=== PATIENT | female | born 1975 | race Caucasian/White ===

== ENCOUNTER → 2016-08-02 | Outpatient (CLI) | payer BC ==
[~2016-08-02] MED LIST: CLC100X PO; KFL500 PO; LVNIS40 SQ; OXYC5TAB PO; PRENTAB26 PO
--- NOTE | 2016-08-06 15:27 | MAMMOGRAPHY REPORT ---
THIS REPORT HAS BEEN AMENDED. BILATERAL DIGITAL SCREENING MAMMOGRAM TOMOSYNTHESIS WITH CAD: 08/02/2016 CLINICAL HISTORY: Routine screening. TECHNIQUE: Breast tomosynthesis in addition to standard 2D mammography was performed. Additional 2 -D CC views were performed with the nipples in profile. Current study was also evaluated with a Unicotriper Aided Detection (CAD) system. COMPARISON: No prior exams were available for comparison. BREAST COMPOSITION: There are scattered areas of fibroglandular density in both breasts. FINDINGS: There are scattered benign-appearing microcalcifications in the breasts. No suspicious ma ss, architectural distortion or cluster of suspicious microcalcifications is seen. IMPRESSION: ACR BI-RADS CATEGORY 1: NEGATIVE There is no mammographic evidence of malignancy. Prior outside mammograms are currently being reque sted and if obtained they will be reviewed, compared to the current exam to assess for any more subt le changes, and an addendum will be made to this report. Otherwise, a 1 year screening mammogram is recommended. The patient will receive written notification of the results. Approximately 10% of breast cancers are not detected with mammography. A negative mammographic repor t should not delay biopsy if a clinically suggestive mass is present. Radha Tesfaye M.D. ay/:08/05/2016 22:27:57 [employer] Supervisor: Renzo JAMES(Sarah)(M), [facility] letter sent: Normal 04/15 BI-RADS Code: ACR BI-RADS Category 1: Negative AMENDMENT: 08/14/2016 Radha Tesfaye M.D. A prior outside mammogram from [facility] dated 04/20/2013 became available for review. There has been no significant interval change compared to the prior outside exam. No new suspicious mass, ar chitectural distortion or suspicious microcalcifications are identified. Advise follow-up in 1 year for next annual screening mammogram. Amended BI-RADS: ACR BI-RADS Category 2: Benign letter sent: Normal /2
== END | disposition home or self-care (01) ==
LOC: C.MAMM 15:23
PROVIDERS: ATTEND Obstetrics & Gynecology
DX: Z12.31 Encounter for screening mammogram for malignant neoplasm of breast (principal)

== ENCOUNTER 2024-03-05 09:54 | Observation (INO) ==
--- NOTE | 2024-02-05 15:00 | PAT Medication Instructions ---
Medication Instructions Date of Service February 05, 2024 Home Medications flecainide 100 mg tablet 100 mg PO BID hydrochlorothiazide 25 mg tablet 25 mg PO QAM diltiazem HCl 240 mg capsule,extended release 24 hr 240 mg PO QAM bupropion HCl 300 mg 24 hr tablet, extended release 300 mg PO QAM celecoxib 200 mg capsule 200 mg PO BID escitalopram oxalate 10 mg tablet 10 mg PO HS omeprazole 20 mg tablet,delayed release 20 mg PO QAM sulfasalazine 500 mg tablet 1,000 mg PO BID tizanidine 4 mg tablet 4 mg PO HS PRN ASK your surgeon for instructions celecoxib 200 mg capsule 200 mg PO BID ASK your prescriber and surgeon sulfasalazine 500 mg tablet 1,000 mg PO BID DO NOT take the morning of surgery hydrochlorothiazide 25 mg tablet 25 mg PO QAM Take morning of surgery With a small sip of water, OTHERWISE NOTHING TO EAT OR DRINK AFTER MIDNIGHT: flecainide 100 mg tablet 100 mg PO BID diltiazem HCl 240 mg capsule,extended release 24 hr 240 mg PO QAM bupropion HCl 300 mg 24 hr tablet, extended release 300 mg PO QAM omeprazole 20 mg tablet,delayed release 20 mg PO QAM Take evening before surgery flecainide 100 mg tablet 100 mg PO BID escitalopram oxalate 10 mg tablet 10 mg PO HS tizanidine 4 mg tablet 4 mg PO HS PRN(if needed) Other Notes If you have any questions please call us at [phone] or [phone] or [phone] or [phone]
--- NOTE | 2024-02-10 11:10 | Anesthesiology Consultation ---
Date of Service February 10, 2024 Assessment & Plan (1) Encounter for pre-operative examination: Chart Review Chart Review: Acceptable Risk for Surgery and Patient seen in Pre Admission Testing - Check test AM DOS - Patient is NOT an ideal OPJ candidate (currently 23 hour observation) Chlorhexidine allergy- wipes not given Per PAT appt on 02/10/24, no recent illness/disease exposures, illness related symptoms, or recent illness/disease positive tests. Will leave to surgeon's discretion if preop Covid testing needed Per cardio letter 02/06/24= Patient has been evaluated and is considered cleared for proposed orthopedic procedure at low cardiac risk based on revised Angus Criteria. Teaching & Discussion Pre-Anesthesia Teaching/Discussion Notes: Instructed NPO after midnight before surgery,except medications with 15 cc of water. Medication instructions provided according to the PAT guidelines. History Surgery Operation Date: 03/05/24 11:00 Proposed Procedures p Left Total Knee Arthroplasty - Miki Harris, Height/Weight Height: 5 ft 8 in Weight: 155.9 kg Allergies Allergy/AdvReac Type Severity Reaction Status Date / Time Iodinated Contrast Media Allergy Severe Severe Verified 02/10/24 09:54 hives (w/crabs),pre-med Prednisone/Benadryl w/IV use grass pollen-perennial rye, Allergy Mild Eye Verified 02/10/24 09:54 standar swelling pollen extracts Allergy Mild Eye Verified 02/10/24 09:54 swelling Penicillins Allergy Unknown Severe Verified 02/10/24 09:54 rash (as child) shellfish derived Allergy Unknown Severe Verified 02/10/24 09:54 hives chlorhexidine AdvReac Mild Skin Verified 02/10/24 11:01 burning sensation and red welts duloxetine [From Cymbalta] AdvReac "Feels Verified 02/10/24 09:54 like I was lit on fire from the inside" Medications Home Medications Medication Instructions Recorded Confirmed Last Taken flecainide 100 mg tablet 100 mg PO BID 05/25/20 02/10/24 11/01/22 08:30 hydrochlorothiazide 25 mg tablet 25 mg PO QAM 05/25/20 02/10/24 10/31/22 08:30 diltiazem HCl 240 mg 240 mg PO QAM 09/26/22 02/10/24 11/01/22 08:30 capsule,extended release 24 hr bupropion HCl 300 mg 24 hr tablet, 300 mg PO QAM 02/04/24 02/10/24 Unknown extended release celecoxib 200 mg capsule 200 mg PO BID 02/04/24 02/10/24 Unknown escitalopram oxalate 10 mg tablet 10 mg PO HS 02/04/24 02/10/24 Unknown omeprazole 20 mg tablet,delayed 20 mg PO QAM 02/04/24 02/10/24 Unknown release sulfasalazine 500 mg tablet 1,000 mg PO BID 02/04/24 02/10/24 Unknown tizanidine 4 mg tablet 4 mg PO HS PRN muscle spasms 02/04/24 02/10/24 Unknown Past Medical History Medical History (Updated 02/10/24 @ 16:29 by Cyndie Britt PA-C) Depression GERD (gastroesophageal reflux disease) well controlled and stable History of COVID-19 01/2022 (home test)- cough > resolved Hx of deep venous thrombosis - DVT found in 2005 (9 months after knee surgery in 2004), Lovenox and Coumadin x months (no AC or issues x years) - had Lovenox post op with c-sections without issues - Negative hypercoagulable work up with heme per patient - Surgeon aware per patient- plans on Eliquis or Xarelto post op Hx of migraines 3-4/year Hypertension IUD (intrauterine device) in place Mirena placed 01/2023 Morbid obesity PCOS (polycystic ovarian syndrome) Sleep apnea CPAP Spondyloarthritis f/u rheumatology, [facility] on sulfasalazine SVT (supraventricular tachycardia) Follows with Dr. Espinoza, [facility] On Flecainide Exercise / Class Metabolic Activity III < 4 Walking/Shop/Light housework (one flight of stairs - no chest pain, mild SOB (feels deconditioning due to weight)) Past Family History Family History Grandmother (Paternal) Ovarian cancer, Onset Age: 51 Grandmother (Maternal) Breast cancer Father Colorectal cancer, Onset Age: 69 Uncle Liver cancer Past Surgical History Surgical History History of x2 History of cardiac cath 2009- no stents, "Normal" per cardiology office visit notes; f/u [facility] espino[facility] cardiology History of colposcopy History of dilatation and curettage w/ IUD insertion History of esophagogastroduodenoscopy (EGD) Hx laparoscopic cholecystectomy Hx of arthroscopy of knee x3 Hx of colonoscopy Hx of knee surgery Right knee osteotomy, 2005 Hx of microdiscectomy L5-S1 (2006) Hx of sinus surgery 06/15/23, w/turbinate reduction; f/u [facility] Nausea and vomiting after administration of anesthetic agent S/P tooth extraction Past Anesthesia History No Hx of Anesthesia Complications (with exception to PONV ) and No Family Hx of Anesthesia Complications History of PONV History of PONV and Hx of Motion Sickness Social History Smoking Status: Never smoker Do You Dip or Chew Tobacco: No Hx Alcohol Use: Yes Alcohol type: wine alcohol intake frequency: other Alcohol Intake Frequency Comment: maybe once or twice monthly Hx Substance Use: No substance use type: does not use Review of Systems Patient denies chest pain, shortness of breath at rest, cough, wheezing, palpitations. No hx of seizures, stroke, SC. No hx of blood transfusions Physical Exam Vital Signs VITALS BP 142/83 P 65 TEMP 98.2 SP02 96% RESP 16 Constitutional no acute distress ENMT Mouth: + small oral opening; no TMJ clicking Thyromental Distance: > or= 3.5 Finger Breadths (3.5) Mallampati Class: II Right front top tooth (dental work) [place] to molar Neck + short neck and + thick neck; neck extension not limited Respiratory normal respiratory effort; no respiratory distress Auscultation: lungs clear to auscultation bilaterally; no wheezes Cardiovascular Rate/Rhythm: regular rate and regular rhythm Heart Sounds: no murmur Vessels: no carotid bruit Musculoskeletal Spine: no pain with cervical ROM (mild stiffness ) Extremities: extremities normal to inspection Psychiatric Orientation: alert Lab Results Anesthesia Preop Results Results Anesthesia Widget: WBC 7.27 K/ul (4.8-10.8) 02/10/24 Hgb 12.6 g/dl (12.0-16.0) 02/10/24 Hct 38.8 % (37.0-47.0) 02/10/24 Plt 266 K/uL (130-400) 02/10/24 Na 138 mmol/L (136-145) 02/10/24 K 3.7 mmol/L (3.5-5.1) 02/10/24 Cl 102 mmol/L (98-107) 02/10/24 CO2 29 mmol/L (21-32) 02/10/24 BUN 19 mg/dl (6-23) 02/10/24 Creat 0.62 mg/dl (0.6-1.2) 02/10/24 Glucose Level 89 mg/dl (70-99(Fasting)) 02/10/24 PT 10.9 Seconds (9.0-12.0) 02/10/24 PTT 27 Seconds (21-31) 02/10/24 INR 1.0 (0.9-1.1) 02/10/24 Blood Type A Positive 02/10/24 Antibody Screen NEGATIVE 02/10/24 Testing Electrocardiogram Date: 02/10/24 Findings: + NSR @ (65bpm) Left axis deviation Nonspecific ST abnormality Chest X-Ray Date: 02/10/24 FINDINGS: Lung volumes are normal. Lungs are clear. There is no pneumothorax or pleural effusion. Cardiac size is at the upper limits of normal. Mediastinal contours are normal. There is no evidence for pulmonary edema. IMPRESSION: No acute cardiopulmonary findings. Echocardiogram Date: 12/10/23 EF: 60-65% LV Function: normal Other Findings: + LVH (borderline/concentric) and + diastolic dysfunction (Grade I ) Valvular Disease: + MR (mild) LV is normal Stress Test Date: 12/10/23 Type: nuclear EKG nondiagnostic. No significant ischemia. No significant infarction. Low risk study. SPECT perfusion images are considered to be within normal limits.
[~2024-03-05 09:54] MED LIST changes: +BUPIVACAINE 0.25% PF 30 ML VIAL ONE; +BUPIVACAINE 0.5 % 5 MG/1 ML PF 10ML VIAL ONE; -CLC100X PO; -KFL500 PO; -LVNIS40 SQ; -OXYC5TAB PO; -PRENTAB26 PO
[2024-03-05] MEDS: LR 500ML BOLUS, THEN 15ML/HR IV SCH ×2 (10:41→10:42)
[2024-03-05] MEDS: dexAMETHasone**PF** 10 MG/ML VIAL IV SCH (10:41)
[2024-03-05] MEDS: LR 60ML/HR IV SCH (10:42)
[2024-03-05] MEDS: GABAPENTIN 900 MG DOSE PO SCH (10:43)
[2024-03-05] MEDS: FAMOTIDINE 20 MG TAB PO SCH (10:43)
[2024-03-05] MEDS: ACETAMINOPHEN 500 MG TAB PO SCH ×2 (10:43→22:35)
[2024-03-05] MEDS ORDERED: MIDAZOLAM HCL 1 MG/ML 2ML VIAL ONE ×2 (11:31→12:49)
[2024-03-05] MEDS ORDERED: PROPOFOL IV EMULSION 10 MG/ML 20 ML VIAL IV ONE ×7 (11:31→13:53)
[2024-03-05] MEDS ORDERED: ONDANSETRON INJ 2 MG/ML 2 ML VIAL ONE (11:31)
[2024-03-05] MEDS ORDERED: LIDOCAINE 2% 2 ML VIAL/AMP(20MG/ML) INFIL ONE (11:31)
[2024-03-05] MEDS ORDERED: ROCURONIUM BROMIDE 10 MG/ML 5 ML VIAL IV ONE (11:31)
[2024-03-05] MEDS ORDERED: fentaNYL citrate PF 100 MCG/2 ML VIAL ONE (11:31)
[2024-03-05] MEDS ORDERED: ONDANSETRON INJ 2 MG/ML 2 ML VIAL IV PRN ×2 (12:12→16:36)
[2024-03-05] MEDS ORDERED: ATROPINE SULFATE 0.1 MG/ML 10ML SYR IV PRN (12:12)
[2024-03-05] MEDS ORDERED: ePHEDrine sulfate 50 MG/ML AMP IV PRN (12:12)
[2024-03-05] MEDS ORDERED: fentaNYL citrate PF 100 MCG/2 ML VIAL IV PRN (12:12)
--- NOTE | 2024-03-05 12:41 | History & Physical Bridge Note ---
Date of Service March 05, 2024 History & Physical Bridge Note I have examined the patient, reviewed the History & Physical and in the interval since the performance of the History & Physical I have noted the following changes of clinical significance: no changes noted
[2024-03-05] MEDS: TRANEXAMIC ACID 1,000 MG **IV Pre-op IV SCH (12:48)
[2024-03-05] MEDS: ceFAZolin 3000MG 3,000 MG/72.5 ML BAG IV SCH (13:00)
[2024-03-05] MEDS ORDERED: ARTIFICIAL TEARS OP OINT 3.5 GM TUBE ONE (13:13)
[2024-03-05] MEDS: TRANEXAMIC ACID 1,000 MG **IV Intra-op IV SCH (14:07)
--- NOTE | 2024-03-05 14:20 | Operative Report ---
PG Post Operative Report Pre & Post Diagnosis Operation Date: 03/05/24 12:00 Pre-Op Diagnosis: Osteoarthritis of bilateral knees Post-Op Diagnosis: Osteoarthritis of bilateral knees I identified the patient and participated in the time-out.: Yes Procedure Operation Date: 03/05/24 12:00 Actual Procedures p Left Total Knee Arthroplasty(Left) - Miki Harris DO Surgeon Miki Harris DO Viscosity Tester Bradley Gomez PA-C Estimated Blood Loss 30 Findings Consistent with Post-Op Diagnosis Specimens Left femoral and tibial bone Description of Procedure Implants used: I used a Tarik Persona total knee arthroplasty system with a size 10 PS narrow femur, E tibia, 34 oval patella, and a size 10 CPS polyethylene bearing. All components were cemented in place with Biomet cement. Patti arrived [facility] for the above procedure. She was seen in the preoperative holding area and the operative extremity was identified and signed. She was given a preoperative antibiotic, TXA, a spinal anesthetic and an adductor nerve block. She was taken back to the operating room and laid on the table in supine position. She was given basic sedation. The operative knee was then prepped and draped in sterile fashion. A timeout was done, and the patient and the operative extremity was properly identified. A midline incision was made directly over the patella. Dissection was taken down to the extensor mechanism. A medial parapatellar arthrotomy was used. The medial retinaculum was released and the fat pad was mostly excised. The knee was flexed and the ACL, PCL, and meniscus were removed. A drill was sent down the center of the femoral canal followed by an intramedullary murray. Off that murray a distal femoral cutting block was placed. 9 mm was resected off the distal femur at 5 of valgus. A posterior referencing AP sizing guide was then placed on the distal femur. The femur measured to be a size 10. 2 drill holes were placed in 3 of external rotation. A 4-in-1 cutting block was then impacted into place. Anterior, posterior, and chamfer cuts were then made. The proximal tibia was then exposed. An external tibial alignment guide was placed. A tibial cut guide was then anchored in place and the proximal tibia was then resected. The posterior aspect of the knee was then opened up and any additional meniscus fragments and osteophytes were removed. The tibia measured to be a size E. The tibial plate was then placed in the appropriate rotation and the tibia was drilled and punched. Trial components were then placed. I used a size 10 CPS polyethylene insert. The knee was brought through a full range of motion and felt to be stable. The peg holes for the femoral component were then drilled. The patella was then everted and 9 mm was resected off the posterior aspect of the patella. The patella measured to be a size 34 oval. 3 peg holes were then drilled. A trial patella was placed. The knee was once again brought through a full range of motion and felt to be stable. Trial components were then removed. The surrounding soft tissues were injected with 100 cc of an orthopedic pain control cocktail. All components were then cemented into place with Biomet cement. The final polyethylene insert was then snapped into place. Once cement was dry the tourniquet was deflated. Hemostasis was obtained. A dilute betadyne lavage was then done for 3 minutes. The joint was then irrigated with normal saline solution. The medial parapatellar arthrotomy was then closed with #1 Vicryl suture. The skin was closed with 2-0 Vicryl, 3-0V lock suture, and sydnie. A soft compressive dressing was placed. She was then transferred to a hospital bed and taken to the postanesthesia care unit in stable condition. She tolerated the procedure well. Bradley Gomez PA-C, was present for the entire procedure. He was critical for patient positioning, prepping, draping, retraction exposure, wound closure and application of sterile dressing. I attest to the content of the Intraoperative Record and any orders documented therein. Any exceptions are noted below.
[2024-03-05] MEDS: ROPIV 0.5% 246mg, Ketorolac 30mg, EPINEPHrine 0.5mg in NSS INFIL SCH (14:21)
[2024-03-05] MEDS: ORTHO JOINT ANESTHETIC ONE (14:22)
--- NOTE | 2024-03-05 15:23 | XRay Report ---
XR knee LT 1 or 2V routine CLINICAL HISTORY: Surgical Post Op COMPARISON: Left knee radiographs October 29, 2023. FINDINGS: Alignment of the total left knee arthroplasty is anatomic. There is no periprosthetic frac ture or unexpected radiopaque foreign body. There are skin sydnie. IMPRESSION: Expected findings following total left knee arthroplasty. ACT 112: Negative or not required by law. Electronically signed by: Keenan Ortega M.D. 03/05/2024 3:22 PM
--- NOTE | 2024-03-05 15:34 | Anesthesiology Progress Note ---
Date of Service March 05, 2024 Anesthesia Post Procedure Vital Signs Vital Signs: Temp Pulse Pulse Resp BP Pulse Ox O2 Del Method 03/05/24 15:25 72 20 125/67 96 Nasal Cannula 03/05/24 15:15 77 16 120/65 97 Nasal Cannula 03/05/24 15:05 73 16 123/63 95 Nasal Cannula 03/05/24 14:55 83 22 118/70 95 Nasal Cannula 03/05/24 14:47 36 C L 97 H 18 115/67 91 Room Air 03/05/24 10:27 36.8 C 72 20 146/80 H 96 Room Air O2 Flow Rate 03/05/24 15:25 2 03/05/24 15:15 2 03/05/24 15:05 2 03/05/24 14:55 2 03/05/24 14:47 03/05/24 10:27 Pain Intensity Left Knee: Pain Intensity: 2 Transfer of Care Handoff Completed per policy Notes Mental Status: alert / awake / arousable Patient Amnestic to Procedure: Yes Nausea / Vomiting: adequately controlled Pain: adequately controlled Airway Patency, RR, SpO2: stable & adequate BP & HR: stable & adequate Hydration State: stable & adequate Neuraxial Anesthesia: was administered and sensory block is resolving Anesthetic Complications: no major complications apparent and Pt Satisfied with anesthetic care
[2024-03-05] MEDS ORDERED: METOCLOPRAMIDE HCL INJ 5 MG/ML 2 ML VIAL IV PRN (16:36)
[2024-03-05] MEDS ORDERED: MAGNESIUM HYDROXIDE SUSP 30 ML UDC PO PRN (16:36)
[2024-03-05] MEDS ORDERED: bisacodyL 10 MG SUPP PR PRN (16:36)
[2024-03-05] MEDS ORDERED: NALOXONE HCL 0.4 MG/1 ML VIAL/CARP IV PRN (16:36)
[2024-03-05] MEDS ORDERED: HYDROmorphone INJ 0.5 MG/0.5 ML SYR IV PRN (16:36)
[2024-03-05] MEDS: DOCUSATE SODIUM 100 MG CAP PO SCH (20:08)
[2024-03-05] MEDS: SENNA 8.6 MG TAB PO SCH (20:08)
[2024-03-05] MEDS: ceFAZolin 2000MG 2,000 MG/15 ML SYR IV SCH (20:08)
[2024-03-05] MEDS: sulfaSALAzine 500 MG TABLET PO SCH (20:09)
[2024-03-05] MEDS: FLECAINIDE ACETATE 100 MG TABLET PO SCH (20:09)
[2024-03-05] MEDS: ESCITALOPRAM OXALATE 10 MG TAB PO SCH (20:10)
[2024-03-05] MEDS: oxyCODONE HCL IR 5 MG TAB (IMMEDIATE RELEASE) PO PRN (20:10)
[2024-03-05 20:23] VITALS: RESP 18
[2024-03-06 07:09] VITALS: TEMP 97.7; O2SAT 96
[2024-03-06] MEDS: dexAMETHasone 4 MG TAB PO SCH (07:37)
[2024-03-06] MEDS: buPROPion XL 300 MG TABCR PO SCH (07:37)
[2024-03-06] MEDS: APIXABAN 2.5 MG TAB PO SCH (07:37)
[2024-03-06] MEDS: dilTIAZem HCL 240 MG CAPCR PO SCH (07:37)
[2024-03-06] MEDS: hydroCHLOROthiazide 25 MG TAB PO SCH (07:38)
[2024-03-06] MEDS: PANTOprazole 40 MG TAB PO SCH (07:39)
[2024-03-06] MEDS: MULTIVITAMIN TAB PO SCH (07:39)
--- NOTE | 2024-03-06 09:10 | Orthopedic Progress Note ---
Date of Service March 06, 2024 Assessment & Plan (1) Status post left knee replacement: Overall she is doing fairly well. She is not having much pain in the left knee. She will be seen by physical therapy today for ambulation and range of motion exercises. The nursing staff can change her dressing after physical therapy. She can be discharged home later today. She will follow-up with orthopedics in 2 weeks. Farida Armstrong was seen and examined at bedside this morning. Overall she is doing very well. She has a little bit of pain in her knee but she knows that is to be expected. She has no other complaints.. Review of Systems All systems reviewed & are unremarkable except as noted in HPI & below. Physical Exam On physical examination of the left knee, the dressing is clean and dry. Her leg is out full extension. She has active dorsiflexion plantarflexion of her left ankle.. Results & Data Results & Data Laboratory Results . Diagnostic Findings Postoperative x-rays of the left knee show the prosthesis to be in anatomic alignment without any evidence of fracture complication, or loosening.. PG Care Time/CCT Total # of Minutes Spent Total Time Spent with Patient: Total time spent is greater than 50% in coordination of care (as documented) at patient's floor/unit and/or counseling patient: Coding Level of Care Code 88683 Post Operative Follow-Up Diagnoses Status post left knee replacement Z96.652
--- NOTE | 2024-03-06 09:11 | Discharge Summary ---
Date of Service March 06, 2024 Principal Diagnosis Same as "Discharge Diagnosis" noted below under Discharge Instructions. Discharge Exam On physical examination of the left knee, the dressing is clean and dry. Her leg is out full extension. She has active dorsiflexion plantarflexion of her left ankle.. Discharge Data Procedures Performed Operation Date: 03/05/24 12:00 Actual Procedures p Left Total Knee Arthroplasty(Left) - Miki Harris DO Ordered Studies 03/05/24 05:00 US - OR guided needle placemen Routine Hospital Course (1) Status post left knee replacement: On March 05, 2024 Terri arrived at [facility] and underwent a left knee replacement without complication. She had a spinal anesthetic. Postoperatively she was started on Eliquis for DVT prophylaxis and transferred to the general orthopedic floors. Her hospital course was uneventful. On postop day #1, her vital signs were stable and her pain was well-controlled. She was able to participate well with physical therapy doing ambulation and range of motion exercises. She was then discharged home. She will follow-up with orthopedics in 2 weeks. PG Care Time/CCT Total # of Minutes Spent Total Time Spent with Patient: Total time spent is greater than 50% in coordination of care (as documented) at patient's floor/unit and/or counseling patient: Discharge Plan Discharge Items Patient Disposition: Home - Self-Care Reason For Visit: Left Knee Arthritis Discharge Diagnosis: Left knee replacement Activity: Per Instructions section Non-emergency contact: Surgeon Call non-emergency contact if: your wound has increased redness and your wound has increased drainage Follow-up/Referrals: Aide Kincaid [Primary Care Provider] - Diet: Regular Addtl Attending Provider Instructions: Activity and Therapy Recommendations: * If you are using [facility] then therapy will be provided at your home until they feel you have accomplished all of your goals. * If you are using [facility] then Physical Therapy will be provided until they feel you are ready to start Outpatient Physical Therapy. * If you are not using home therapy then Outpatient Physical Therapy should start about 3-5 days from your day of surgery. Therapy will last about 6-10 weeks * It is important not to put a pillow under your knee when you are relaxing or sleeping. It is just as important to make sure you are getting your knee perfectly straight as it is to regain your knee bend. * You were shown a series of exercises in the hospital. Do these exercises three times each day including the exercises you were shown in physical therapy. * Get up and walk several times each day. For the first four weeks, try not to stand or walk for more than one hour at a time. If you do stand or walk for more than one hour, you will not hurt anything, but your leg will likely swell. * As you feel comfortable, you may change from the walker or crutches to a cane and then to independent walking. Medications: * Narcotic You will likely be sent home from the hospital with a prescription for the narcotic pain medication that worked best throughout your stay. * Cefadroxil -take the antibiotic twice a day for 10 days to help prevent infection. * Take Eliquis 2.5 mg twice a day for 2 weeks after surgery. * Other medications may be prescribed for specific circumstances. If you have any questions, please call the office at . * Resume previous home medications unless otherwise instructed TEDs/Elastic Stockings: The white elastic stockings help limit swelling and prevent blood clots from forming in your legs.~ The more you wear them, the more they work. Wear them for six weeks. Dressing Care: The dressing can be changed after physical therapy on postop day #1. Daily dry dressing changes for a few days, especially if the incision is still draining some. If the incision is not draining then you may leave the sydnie open to air. If there is a little bit of drainage or if the sydnie are getting stuck on your clothing then cover the incision with a dry dressing. The sydnie will be removed at your 2 week follow-up appointment. Showering: You may shower 5 days from the day of surgery as long as the incision is no longer draining. You may shower with the sydnie exposed. Let soapy water run over the sydnie and pat them dry. Do not scrub or soak the incision. Diet: You may resume your previous diet. Things To Watch For: * Drainage from the incision site that occurs more than one week after your surgery. * Increased redness at the incision site. * Fever above 102 degrees Fahrenheit. * Unusual chest pain or shortness of breath. * Call [facility] at with any of the above problems Follow-Up Visit: Follow-up with Dr. Harris's office 2-3 weeks after your day of surgery. We will remove your sydnie and answer any questions. If you have any additional questions or concerns, Dr Harris is usually in the office at the same time and will be available An appointment was probably scheduled when you signed-up for surgery in the office. If you have any questions call Office Instructions: More detailed instructions as well as Frequently Asked Questions were provided in a folder by our office when you signed-up for surgery. Please review these instructions when you get home. If you have any further questions or concerns, please feel free to call the office at [phone] Pending Studies at Discharge: No Stand-Alone Forms: [facility] Youth, Smoking Cessation Medications and DC Order Prescriptions: New oxycodone 5 mg Tablet 5 mg PO Q4H PRN (Reason: pain) Qty: 30 0RF Eliquis 2.5 mg Tablet 2.5 mg PO BID 14 Days Qty: 28 0RF cefadroxil 500 mg capsule 500 mg PO BID 10 Days Qty: 20 0RF Continued flecainide 100 mg tablet 100 mg PO BID hydrochlorothiazide 25 mg tablet 25 mg PO QAM diltiazem HCl 240 mg capsule,extended release 24hr 240 mg PO QAM celecoxib 200 mg capsule 200 mg PO BID sulfasalazine 500 mg tablet 1,000 mg PO BID tizanidine 4 mg Tablet 4 mg PO HS PRN (Reason: muscle spasms) escitalopram oxalate 10 mg Tablet 10 mg PO HS bupropion HCl 300 mg tablet extended release 24 hr 300 mg PO QAM omeprazole 20 mg Tablet,Delayed Release (Dr/Ec) 20 mg PO QAM Discharge Orders: Discharge Order (Routine); Ordered 03/06/24 Ordered By: Miki Harris Admission Data Admit Date/Time: 03/05/24 14:49 Attending Provider: Miki Harris Admit Provider: Miki Harris Primary Care Provider: Aide Kincaid
[2024-03-06 12:32] VITALS: BP 114/74; PULSE 64
== END 2024-03-06 13:00 | disposition home or self-care (01) ==
LOC: 3E 09:54 → ASU 09:54

== ENCOUNTER 2024-07-09 10:13 | Observation (INO) ==
--- NOTE | 2024-06-30 11:00 | Anesthesiology Consultation ---
Date of Service June 30, 2024 Assessment & Plan (1) Encounter for pre-operative examination: Chart Review Chart Review: Acceptable Risk for Surgery and Patient NOT seen in Pre Admission Testing Consults Requested none History Surgery Operation Date: 07/09/24 07:00 Proposed Procedures p Right Total Knee Arthroplasty - Miki Harris, Height/Weight Height: 5 ft 8 in Weight: 146.057 kg Allergies Allergy/AdvReac Type Severity Reaction Status Date / Time Iodinated Contrast Media Allergy Severe Severe Verified 06/25/24 14:11 hives (w/crabs),pre-med Prednisone/Benadryl w/IV use chlorhexidine Allergy Mild Skin Verified 06/25/24 14:11 burning sensation and red welts grass pollen-perennial rye, Allergy Mild Eye Verified 06/25/24 14:11 standar swelling pollen extracts Allergy Mild Eye Verified 06/25/24 14:11 swelling Penicillins Allergy Unknown Severe Verified 06/25/24 14:11 rash (as child) shellfish derived Allergy Unknown Severe Verified 06/25/24 14:11 hives duloxetine [From Cymbalta] AdvReac "Feels Verified 06/25/24 14:11 like I was lit on fire from the inside" Medications Home Medications Medication Instructions Recorded Confirmed Last Taken flecainide 100 mg tablet 100 mg PO BID 05/25/20 06/25/24 03/05/24 07:45 hydrochlorothiazide 25 mg tablet 25 mg PO QAM 05/25/20 06/25/24 03/04/24 08:00 diltiazem HCl 240 mg 240 mg PO QAM 09/26/22 06/25/24 03/05/24 07:45 capsule,extended release 24 hr bupropion HCl 300 mg 24 hr tablet, 300 mg PO QAM 02/04/24 06/25/24 03/05/24 07:45 extended release celecoxib 200 mg capsule 200 mg PO BID 02/04/24 06/25/24 02/27/24 escitalopram oxalate 10 mg tablet 10 mg PO HS 02/04/24 06/25/24 03/04/24 21:00 omeprazole 20 mg tablet,delayed 20 mg PO QAM 02/04/24 06/25/24 Unknown release sulfasalazine 500 mg tablet 1,000 mg PO BID 02/04/24 06/25/24 02/27/24 tizanidine 4 mg tablet 4 mg PO HS PRN muscle spasms 02/04/24 06/25/24 03/04/24 21:00 levonorgestrel 21 mcg/24 hr (up to 1 device intrauterine UD 05/26/24 06/25/24 Unknown 8 years) 52 mg intrauterine device (Mirena) clindamycin HCl 300 mg capsule 300 mg PO UD Dental Work Antibiotic 06/25/24 06/25/24 Unknown multivitamin 1 tab PO QAM 06/25/24 06/25/24 Unknown Past Medical History Medical History Sleep apnea CPAP Spondyloarthritis f/u rheumatology, [place] [facility] on sulfasalazine PCOS (polycystic ovarian syndrome) IUD (intrauterine device) in place Mirena placed 01/2023 Hx of deep venous thrombosis - DVT found in 2005 (9 months after knee surgery in 2004), Lovenox and Coumadin x months (no AC or issues x years) - had Lovenox post op with c-sections without issues - Negative hypercoagulable work up with heme per patient - Surgeon aware per patient- plans on Eliquis or Xarelto post op Hx of migraines 3-4/year History of COVID-19 01/2022 (home test)- cough > resolved SVT (supraventricular tachycardia) Follows with Dr. Parker, [facility] On Flecainide Depression Morbid obesity Hypertension GERD (gastroesophageal reflux disease) well controlled and stable Past Family History Family History Grandmother (Paternal) Ovarian cancer, Onset Age: 51 Grandmother (Maternal) Breast cancer Father Colorectal cancer, Onset Age: 69 Uncle Liver cancer Past Surgical History Surgical History S/P total knee replacement left TKA Hx of tubal ligation Hx of sinus surgery 06/15/23, w/turbinate reduction; f/u [facility] History of dilatation and curettage w/ IUD insertion Nausea and vomiting after administration of anesthetic agent Hx of microdiscectomy L5-S1 (2006) Hx of knee surgery Right knee osteotomy, 2005 Hx of arthroscopy of knee x3 Hx laparoscopic cholecystectomy History of esophagogastroduodenoscopy (EGD) Hx of colonoscopy History of x2 History of cardiac cath 2008- no stents, "Normal" per cardiology office visit notes; f/u [facility] S/P tooth extraction History of colposcopy Social History Smoking Status: Never smoker Do You Dip or Chew Tobacco: No Hx Alcohol Use: Yes Alcohol type: wine alcohol intake frequency: other Hx Substance Use: No substance use type: does not use Testing Laboratory Results Laboratory Tests 06/29/24 11:05 WBC 7.30 Hgb 12.0 Hct 37.6 Plt Count 278 PT 10.8 INR 1.0 APTT 27 Sodium 138 Potassium 3.5 Chloride 103 Carbon Dioxide 30 BUN 19 Creatinine 0.56 L Glucose 102 H Electrocardiogram Date: 02/10/24 DICTATED BY: Dez Argueta MD Test Reason : Blood Pressure : */* mmHG Vent. Rate : 65 BPM Atrial Rate : 65 BPM P-R Int : 184 ms QRS Dur : 96 ms QT Int : 440 ms P-R-T Axes : 73 -70 -2 degrees QTcB Int : 457 ms Normal sinus rhythm Left axis deviation Nonspecific ST abnormality Abnormal ECG No previous ECGs available Confirmed by Dez Argueta ([id number]) on 02/10/2024 1:45:51 PM Chest X-Ray Date: 02/10/24 DICTATED BY: Dez Argueta MD Test Reason : Blood Pressure : */* mmHG Vent. Rate : 65 BPM Atrial Rate : 65 BPM P-R Int : 184 ms QRS Dur : 96 ms QT Int : 440 ms P-R-T Axes : 73 -70 -2 degrees QTcB Int : 457 ms Normal sinus rhythm Left axis deviation Nonspecific ST abnormality Abnormal ECG No previous ECGs available Confirmed by Dez Argueta ([id number]) on 02/10/2024 1:45:51 PM Echocardiogram Date: 12/10/23 LV normal function. EF 60-65% RV normal function. DD Grade 1 Mild mitral regurg
[~2024-07-09 10:13] MED LIST changes: -BUPIVACAINE 0.25% PF 30 ML VIAL ONE; -BUPIVACAINE 0.5 % 5 MG/1 ML PF 10ML VIAL ONE; +ROPIVACAINE 0.5% 5 MG/ML 30 ML VIAL ONE
[2024-07-09] MEDS: LR 500ML BOLUS, THEN 15ML/HR IV SCH (10:40)
[2024-07-09] MEDS: LR 60ML/HR IV SCH (10:40)
[2024-07-09] MEDS: ACETAMINOPHEN 500 MG TAB PO SCH ×2 (10:42→22:01)
[2024-07-09] MEDS: FAMOTIDINE 20 MG TAB PO SCH (10:42)
[2024-07-09] MEDS: dexAMETHasone**PF** 10 MG/ML VIAL IV SCH (10:42)
[2024-07-09] MEDS: GABAPENTIN 900 MG DOSE PO SCH (10:42)
--- NOTE | 2024-07-09 11:09 | History & Physical Bridge Note ---
Date of Service July 09, 2024 History & Physical Bridge Note I have examined the patient, reviewed the History & Physical and in the interval since the performance of the History & Physical I have noted the following changes of clinical significance: no changes noted
[2024-07-09] MEDS ORDERED: ONDANSETRON INJ 2 MG/ML 2 ML VIAL IV PRN ×2 (11:32→15:21)
[2024-07-09] MEDS ORDERED: ePHEDrine sulfate 50 MG/ML AMP IV PRN (11:32)
[2024-07-09] MEDS ORDERED: ATROPINE SULFATE 0.1 MG/ML 10ML SYR IV PRN (11:32)
[2024-07-09] MEDS ORDERED: HYDROmorphone INJ 2 MG/ML SYR/VIAL IV PRN (11:32)
[2024-07-09] MEDS ORDERED: fentaNYL citrate PF 100 MCG/2 ML VIAL IV PRN (11:32)
[2024-07-09] MEDS ORDERED: MIDAZOLAM HCL 1 MG/ML 2ML VIAL ONE ×2 (11:44→12:02)
[2024-07-09] MEDS ORDERED: PROPOFOL IV EMULSION 10 MG/ML 20 ML VIAL IV ONE (11:44)
[2024-07-09] MEDS: TRANEXAMIC ACID 1,000 MG **IV Pre-op IV SCH (11:57)
[2024-07-09] MEDS: ceFAZolin 2000MG 2,000 MG/15 ML SYR IV SCH ×2 (12:20→22:01)
[2024-07-09] MEDS: ORTHO JOINT ANESTHETIC ONE (12:52)
[2024-07-09] MEDS: ROPIV 0.5% 246mg, Ketorolac 30mg, EPINEPHrine 0.5mg in NSS INFIL SCH (13:25)
[2024-07-09] MEDS: TRANEXAMIC ACID 1,000 MG **IV Intra-op IV SCH (13:34)
[2024-07-09] MEDS ORDERED: LIDOCAINE 2% 2 ML VIAL/AMP(20MG/ML) INFIL ONE (13:39)
--- NOTE | 2024-07-09 14:39 | XRay Report ---
XR knee RT 1 or 2V routine CLINICAL HISTORY: Surgical Post Op COMPARISON: None FINDINGS: Right knee prosthesis shows no hardware complication. There is expected soft tissue gas. S kin sydnie are present. IMPRESSION: Unremarkable postoperative exam. ACT 112: Negative or not required by law. Electronically signed by: Yong Constantino M.D. 07/09/2024 2:38 PM
--- NOTE | 2024-07-09 14:40 | Operative Report ---
PG Post Operative Report Pre & Post Diagnosis Operation Date: 07/09/24 12:00 Pre-Op Diagnosis: Right Knee Osteoarthritis Post-Op Diagnosis: Right Knee Osteoarthritis I identified the patient and participated in the time-out.: Yes Procedure Operation Date: 07/09/24 12:00 Actual Procedures p Right Total Knee Arthroplasty(Right) - Miki Harris DO Surgeon Miki Harris DO [employer] Technician Bradley Rahman PA-C Estimated Blood Loss 100 Findings Consistent with Post-Op Diagnosis Specimens Right femoral and tibial bone Description of Procedure Implants used: I used a Tarik Persona total knee arthroplasty system with a size 9 standard PS femur, E tibia, 34 oval patella, and a size 10 CPS polyethylene bearing. All components were cemented in place with Biomet cement. Patti arrived [facility] for the above procedure. She was seen in the preoperative holding area and the operative extremity was identified and signed. She was given a preoperative antibiotic, TXA, a spinal anesthetic and an adductor nerve block. She was taken back to the operating room and laid on the table in supine position. She was given basic sedation. The operative knee was then prepped and draped in sterile fashion. A timeout was done, and the patient and the operative extremity was properly identified. A midline incision was made directly over the patella. Dissection was taken down to the extensor mechanism. A medial parapatellar arthrotomy was used. The medial retinaculum was released and the fat pad was mostly excised. The knee was flexed and the ACL, PCL, and meniscus were removed. A drill was sent down the center of the femoral canal followed by an intramedullary murray. Off that murray a distal femoral cutting block was placed. 9 mm was resected off the distal femur at 5 of valgus. A posterior referencing AP sizing guide was then placed on the distal femur. The femur measured to be a size 9. 2 drill holes were placed in 3 of external rotation. A 4-in-1 cutting block was then impacted into place. Anterior, posterior, and chamfer cuts were then made. The proximal tibia was then exposed. An external tibial alignment guide was placed. A tibial cut guide was then anchored in place and the proximal tibia was then resected. The posterior aspect of the knee was then opened up and any additional meniscus fragments and osteophytes were removed. The tibia measured to be a size E. The tibial plate was then placed in the appropriate rotation and the tibia was drilled and punched. Trial components were then placed. I used a size 10 CPS polyethylene insert. The knee was brought through a full range of motion and felt to be stable. The peg holes for the femoral component were then drilled. The patella was then everted and 9 mm was resected off the posterior aspect of the patella. The patella measured to be a size 34 oval. 3 peg holes were then drilled. A trial patella was placed. The knee was once again brought through a full range of motion and felt to be stable. Trial components were then removed. The surrounding soft tissues were injected with 100 cc of an orthopedic pain control cocktail. All components were then cemented into place with Biomet cement. The final polyethylene insert was then snapped into place. Once cement was dry the tourniquet was deflated. Hemostasis was obtained. A dilute betadyne lavage was then done for 3 minutes. The joint was then irrigated with normal saline solution. The medial parapatellar arthrotomy was then closed with #1 Vicryl suture. The skin was closed with 2-0 Vicryl, 3-0V lock suture, and sydnie. A soft compressive dressing was placed. She was then transferred to a hospital bed and taken to the postanesthesia care unit in stable condition. She tolerated the procedure well. Bradley Rahman PA-C, was present for the entire procedure. He was critical for patient positioning, prepping, draping, retraction exposure, wound closure and application of sterile dressing. I attest to the content of the Intraoperative Record and any orders documented therein. Any exceptions are noted below.
--- NOTE | 2024-07-09 15:07 | Anesthesiology Progress Note ---
Date of Service July 09, 2024 Anesthesia Post Procedure Vital Signs Vital Signs: Temp Pulse Pulse Resp BP Pulse Ox O2 Del Method 07/09/24 14:50 64 17 126/71 94 Room Air 07/09/24 14:40 36.8 C 71 18 134/82 95 Room Air 07/09/24 14:30 64 17 137/71 96 Oxymask 07/09/24 14:28 64 15 138/76 99 Oxymask 07/09/24 14:10 37.1 C 71 22 137/74 96 Oxymask 07/09/24 10:20 36.8 C 71 19 133/88 98 Room Air O2 Flow Rate 07/09/24 14:50 07/09/24 14:40 07/09/24 14:30 2 07/09/24 14:28 9 07/09/24 14:10 9 07/09/24 10:20 Transfer of Care Handoff Completed per policy Notes Mental Status: alert / awake / arousable and participated in evaluation Patient Amnestic to Procedure: Yes Nausea / Vomiting: adequately controlled Pain: adequately controlled Airway Patency, RR, SpO2: stable & adequate BP & HR: stable & adequate Hydration State: stable & adequate Anesthetic Complications: no major complications apparent
[2024-07-09] MEDS ORDERED: bisacodyL 10 MG SUPP PR PRN (15:21)
[2024-07-09] MEDS ORDERED: HYDROmorphone INJ 0.5 MG/0.5 ML SYR IV PRN (15:21)
[2024-07-09] MEDS ORDERED: [UNRECOGNIZED DRUG - OTHER] IU SCH (15:21)
[2024-07-09] MEDS ORDERED: METOCLOPRAMIDE HCL INJ 5 MG/ML 2 ML VIAL IV PRN (15:21)
[2024-07-09] MEDS ORDERED: MAGNESIUM HYDROXIDE SUSP 30 ML UDC PO PRN (15:21)
[2024-07-09] MEDS ORDERED: LEVONORGESTREL IU SCH (15:21)
[2024-07-09] MEDS ORDERED: NALOXONE HCL 0.4 MG/1 ML VIAL/CARP IV PRN (15:21)
[2024-07-09] MEDS: oxyCODONE HCL IR 5 MG TAB (IMMEDIATE RELEASE) PO PRN (17:39)
[2024-07-09] MEDS: SENNA 8.6 MG TAB PO SCH (21:55)
[2024-07-09] MEDS: DOCUSATE SODIUM 100 MG CAP PO SCH (22:01)
[2024-07-09] MEDS: FLECAINIDE ACETATE 100 MG TABLET PO SCH (22:01)
[2024-07-09] MEDS: ESCITALOPRAM OXALATE 10 MG TAB PO SCH (22:01)
[2024-07-09] MEDS: sulfaSALAzine 500 MG TABLET PO SCH (22:01)
[2024-07-10 07:11] VITALS: BP 148/88; PULSE 56; RESP 20; TEMP 97.9; O2SAT 96
--- NOTE | 2024-07-10 08:04 | Orthopedic Progress Note ---
Date of Service July 10, 2024 Assessment & Plan (1) Status post right knee replacement: Overall she is doing very well. She is not having much pain in the right knee. She will be seen by physical therapy today for ambulation and range of motion exercises. She is on Eliquis for DVT prophylaxis. The nursing staff can change her dressing after physical therapy. She can be discharged to home later today. She will follow-up with orthopedics in 2 weeks. Farida Armstrong was seen and examined at bedside this morning. Overall she is doing very well. She is not having too much pain in the right knee. She has little bit of posterior knee pain. She has been up and ambulating to the bathroom. She has no complaints.. Review of Systems All systems reviewed & are unremarkable except as noted in HPI & below. Physical Exam On physical exam of the right knee, the dressing is clean and dry. Her leg is out full extension. She has active dorsiflexion plantarflexion of her right ankle.. Results & Data Results & Data Laboratory Results . Diagnostic Findings Postoperative x-rays of the right knee show the prosthesis to be in anatomic alignment without any evidence of fracture complication, or loosening.. PG Care Time/CCT Total # of Minutes Spent Total Time Spent with Patient: Total time spent is greater than 50% in coordination of care (as documented) at patient's floor/unit and/or counseling patient: Coding Level of Care Code 93945 Post Operative Follow-Up Diagnoses Status post right knee replacement Z96.651
--- NOTE | 2024-07-10 08:05 | Discharge Summary ---
Date of Service July 10, 2024 Principal Diagnosis Same as "Discharge Diagnosis" noted below under Discharge Instructions. Discharge Exam On physical exam of the right knee, the dressing is clean and dry. Her leg is out full extension. She has active dorsiflexion plantarflexion of her right ankle.. Discharge Data Procedures Performed Operation Date: 07/09/24 12:00 Actual Procedures p Right Total Knee Arthroplasty(Right) - Miki Harris DO Ordered Studies 07/09/24 05:00 US - OR guided needle placemen Routine Hospital Course (1) Status post right knee replacement: On July 09, 2024 Patti arrived at [facility] and underwent a right knee replacement without complication. She had a spinal anesthetic. Postoperatively, she was started on Eliquis for DVT prophylaxis and transferred to the general orthopedic floors. Her hospital course was uneventful. On postop day #1, her vital signs were stable and her pain was well-controlled. She was able to participate well with physical therapy doing ambulation and range of motion exercises. She was then discharged home. She will follow-up orthopedics in 2 weeks. PG Care Time/CCT Total # of Minutes Spent Total Time Spent with Patient: Total time spent is greater than 50% in coordination of care (as documented) at patient's floor/unit and/or counseling patient: Discharge Plan Discharge Items Patient Disposition: Home - Self-Care Reason For Visit: Right Knee Arthritis Discharge Diagnosis: Right knee replacement Activity: Per Instructions section Non-emergency contact: Surgeon Call non-emergency contact if: your wound has increased redness and your wound has increased drainage Follow-up/Referrals: Aide Kincaid [Primary Care Provider] - Diet: Regular Addtl Attending Provider Instructions: Activity and Therapy Recommendations: * If you are using [facility] then therapy will be provided at your home until they feel you have accomplished all of your goals. * If you are using [facility] then Physical Therapy will be provided until they feel you are ready to start Outpatient Physical Therapy. * If you are not using home therapy then Outpatient Physical Therapy should start about 3-5 days from your day of surgery. Therapy will last about 6-10 weeks * It is important not to put a pillow under your knee when you are relaxing or sleeping. It is just as important to make sure you are getting your knee perfectly straight as it is to regain your knee bend. * You were shown a series of exercises in the hospital. Do these exercises three times each day including the exercises you were shown in physical therapy. * Get up and walk several times each day. For the first four weeks, try not to stand or walk for more than one hour at a time. If you do stand or walk for more than one hour, you will not hurt anything, but your leg will likely swell. * As you feel comfortable, you may change from the walker or crutches to a cane and then to independent walking. Medications: * Narcotic You will likely be sent home from the hospital with a prescription f or the narcotic pain medication that worked best throughout your stay. * Cefadroxil -take the antibiotic twice a day for 10 days to help prevent infection. * Take Eliquis 2.5 mg twice a day for 2 weeks to help prevent blood clots. * Other medications may be prescribed for specific circumstances. If you have any questions, please call the office at . * Resume previous home medications unless otherwise instructed TEDs/Elastic Stockings: The white elastic stockings help limit swelling and prevent blood clots from forming in your legs.~ The more you wear them, the more they work. Wear them for 2 weeks. Dressing Care: The dressing can be changed after physical therapy on postop day #1. Daily dry dressing changes for a few days, especially if the incision is still draining some. If the incision is not draining then you may leave the sydnie open to air. If there is a little bit of drainage or if the sydnie are getting stuck on your clothing then cover the incision with a dry dressing. The sydnie will be removed at your 2 week follow-up appointment. Showering: You may shower 5 days from the day of surgery as long as the incision is no longer draining. You may shower with the sydnie exposed. Let soapy water run over the sydnie and pat them dry. Do not scrub or soak the incision. Diet: You may resume your previous diet. Things To Watch For: * Drainage from the incision site that occurs more than one week after your surgery. * Increased redness at the incision site. * Fever above 102 degrees Fahrenheit. * Unusual chest pain or shortness of breath. * Call [facility] at with any of the above problems Follow-Up Visit: Follow-up with Dr. Harris's office 2-3 weeks after your day of surgery. We will remove your sydnie and answer any questions. If you have any additional questions or concerns, Dr Harris is usually in the office at the same time and will be available An appointment was probably scheduled when you signed-up for surgery in the office. If you have any questions call Office Instructions: More detailed instructions as well as Frequently Asked Questions were provided in a folder by our office when you signed-up for surgery. Please review these instructions when you get home. If you have any further questions or concerns, please feel free to call the office at [phone] Pending Studies at Discharge: No Stand-Alone Forms: My [facility] Medications and DC Order Prescriptions: New cefadroxil 500 mg capsule 500 mg PO BID 10 Days Qty: 20 0RF oxycodone 5 mg tablet 5 mg PO Q6H PRN (Reason: pain) Qty: 30 0RF Eliquis 2.5 mg tablet 2.5 mg PO BID Qty: 28 0RF Continued flecainide 100 mg tablet 100 mg PO BID hydrochlorothiazide 25 mg tablet 25 mg PO QAM Mirena 21 mcg/24hr (up to 8 yrs) 52 mg intrauterine device 1 device intrauterine UD diltiazem HCl 240 mg capsule,extended release 24hr 240 mg PO QAM celecoxib 200 mg capsule 200 mg PO BID sulfasalazine 500 mg tablet 1,000 mg PO BID tizanidine 4 mg Tablet 4 mg PO HS PRN (Reason: muscle spasms) escitalopram oxalate 10 mg Tablet 10 mg PO HS bupropion HCl 300 mg tablet extended release 24 hr 300 mg PO QAM omeprazole 20 mg Tablet,Delayed Release (Dr/Ec) 20 mg PO QAM clindamycin HCl 300 mg capsule 300 mg PO UD multivitamin Tablet 1 tab PO QAM Discharge Orders: Discharge Order (Routine); Ordered 07/10/24 Ordered By: Miki Harris Admission Data Admit Date/Time: 07/09/24 14:13 Attending Provider: Miki Harris Admit Provider: Miki Harris Primary Care Provider: Aide Kincaid
[2024-07-10] MEDS: buPROPion XL 300 MG TABCR PO SCH (09:08)
[2024-07-10] MEDS: dexAMETHasone 4 MG TAB PO SCH (09:08)
[2024-07-10] MEDS: APIXABAN 2.5 MG TAB PO SCH (09:08)
[2024-07-10] MEDS: dilTIAZem HCL 240 MG CAPCR PO SCH (09:09)
[2024-07-10] MEDS: hydroCHLOROthiazide 25 MG TAB PO SCH (09:10)
[2024-07-10] MEDS: MULTIVITAMIN TAB PO SCH (09:10)
[2024-07-10] MEDS: PANTOprazole 40 MG TAB PO SCH (09:11)
== END 2024-07-10 14:31 | disposition home or self-care (01) ==
LOC: ASU 10:13 → 3W 10:13